=== PATIENT | male | born 1980 | race Caucasian/White ===

== ENCOUNTER 2019-08-20 19:39 | Emergency (ER) | payer OTHER ==
[~2019-08-20] VITALS: Ht 193 cm; Wt 113.4 kg
[~2019-08-20 19:39] MED LIST: ATORVASTATIN CA40 MG PO; CARAFATE 1 GM TA1 GM PO; HYDROCHLOROTHIA25 M1 PO; PREVACID 30MG C30 M1 PO; PREVACID15 MG; PROTONIX40 M1 PO; SIMETHICON CHEW80 M1 PO; TYLENOL325 MG PO; XANAX 0.25 MG0.25 MG PO
[2019-08-20] MEDS ORDERED: LISINOPRIL2.5 MG PO (19:50)
[2019-08-20 19:56] LABS: URINE BILIRUBIN NEGATIVE (Negative); URINE BLOOD NEGATIVE (Negative); URINE CLARITY SL CLOUDY; URINE COLOR YELLOW; URINE GLUCOSE-RANDOM NEGATIVE (Negative); URINE KETONES NEGATIVE (Negative); URINE LEUKOCYTES-REFLEX NEGATIVE (Negative); URINE NITRITE-REFLEX NEGATIVE (Negative); URINE PROTEIN NEGATIVE (Negative); URINE UROBILINOGEN 0.2 E.U./dl (0.2-1.0)
[2019-08-20 19:58] LABS: SQUAMOUS 0-3 Few /LPF (0-3)
[2019-08-20 19:59] LABS: URINE RBC 0-2 Rare /HPF (0-2); URINE WBC-REFLEX 0-5 Rare /HPF (0-5)
[2019-08-20 20:00] LABS: CASTS None Seen /LPF (None Seen); CRYSTALS None Seen /LPF (None Seen); MUCUS 0-3 Light strn/LPF (None Seen)
[2019-08-20 20:10] LABS: ABSOLUTE EOSINOPHILS 0.2 thou/uL (0.0-0.7); ABSOLUTE LYMPHOCYTES 2.2 thou/uL (0.8-5.3); ABSOLUTE MONOCYTES 0.6 thou/uL (0.0-1.2); ABSOLUTE NEUTROPHILS 3.7 thou/uL (1.6-8.1); BASOPHILS 0.6 %; EOSINOPHILS 3.1 %; HEMOGLOBIN 14.8 gm/dL (14.0-18.0); LYMPHOCYTES 32.7 %; MCH 28.5 pg (26.0-34.0); MCHC 33.6 g/dL (28.0-37.0); MCV 84.7 fL (80.0-100.0); MONOCYTES 8.3 %; MPV 7.8 fl. (7.2-11.1); NUCLEATED RBCS 0 /100WBC; PLATELET COUNT* 286 thou/uL (150-400); POLYS 55.3 %; RBC 5.19 mil/uL (4.50-6.00); RDW-CV 12.6 % (10.5-14.5); WBC 6.7 thou/uL (4.0-11.0)
[2019-08-20 20:17] LABS: CALCIUM 8.7 mg/dL (8.5-10.1); POTASSIUM 3.7 mmol/L (3.5-5.1)
[2019-08-20 20:18] LABS: APTT 26.6 Seconds (25.0-31.3); PROTIME 10.7 Seconds (9.20-11.50)
[2019-08-20 20:27] LABS: TOTAL BILIRUBIN 0.3 mg/dL (<0.1-1.0); TOTAL PROTEIN 7.6 g/dL (6.4-8.2)
[2019-08-20] MEDS ORDERED: NAPROSYN500 MG PO (21:48)
[2019-08-20] MEDS ORDERED: MEDROLDOSEPACK PO (21:48)
[2019-08-20] MEDS ORDERED: ROBAXIN 750 MG750 MG PO (21:48)
[2019-08-20 21:57] VITALS: BP 146/83
--- NOTE | 2019-08-22 10:43 | EKG ---
[place] [address] ELECTROCARDIOGRAM REPORT Name: CARLENE AZAR Room: [facility]#: [id number] Admission: 08/20/19 Attend Phys: Discharge: 08/20/19 Date of : 84 Report #: [id number] THIS REPORT FOR: //name// [facility] ED Test Date: 2019-08-20 Test Time: 20:02:13 Pat Name: CARLENE DOE Department: Room: Gender: M Resident Buyer: MEG : 1980 Requested By: Armand Bolivar Order Number: [id number] MD: Wilfred Foss Measurements Intervals [place] Rate: 82 P: 23 LA: 155 QRS: 30 QRSD: 89 T: 41 QT: 389 QTc: 455 Interpretive Statements Sinus rhythm Baseline wander in lead(s) III Compared to ECG 08/05/2016 20:08:54 No significant changes Electronically Signed On 08-22-2019 10:42:37 [employer]CH[employer] by Wilfred Foss [email or web address] <ELECTRONICALLY SIGNED> By: Wilfred Foss MD, [facility] 08/22/19 1042 01 01 Wilfred Foss MD, FAC /EPI
== END 2019-08-20 21:58 | disposition home or self-care (01) ==
LOC: M.ERS 19:39
PROVIDERS: Nurse Practitioner Family
DX: S29.012A Strain of muscle and tendon of back wall of thorax, initial encounter (principal); I10 Essential (primary) hypertension; E78.00 Pure hypercholesterolemia, unspecified; Z90.49 Acquired absence of other specified parts of digestive tract; X58.XXXA Exposure to other specified factors, initial encounter; Y92.89 Other specified places as the place of occurrence of the external cause; Y93.89 Activity, other specified; Y99.8 Other external cause status